=== PATIENT | female | born 1990 | race American Indian/Alaskan Native ===

== ENCOUNTER 2016-12-05 06:36 | Day surgery (SDC) | payer MEDICAID ==
[~2016-12-05 06:36] MED LIST: Lactated Ringers 1,000 ML IV SCH; Lidocaine 1% 4 ML ONE; Lidocaine 1%/Sod Bicarbonate in NS 8.4% 1 ML Syringe IV PRN; Midazolam 1 MG/ML 2 ML SDV ONE; Propofol 200 MG/20 ML SDV ONE; Sodium Chloride 0.9% 10 ML Syringe FLUSH PRN; fentaNYL 100 MCG/2 ML SDV ONE
--- NOTE | 2016-12-05 07:00 | PCM.PREANE ---
Preanesthetic Assessment - Anesthesia/Transfusion/Family Hx Anesthesia History: No Prior Anesthesia Family History of Anesthesia Reaction: No Transfusion History: No Prior Transfusion(s) - Review of Systems General: No Symptoms Pulmonary: No Symptoms Cardiovascular: No Symptoms Gastrointestinal: No symptoms Neurological: No Symptoms Other: Reports: None - Physical Assessment NPO Status Date: 12/04/16 NPO Status Time: 22:00 Pulse: 74 O2 Sat by Pulse Oximetry: 94 Respiratory Rate: 16 Blood Pressure: 152/104 Temperature: 97 F Height: 5 ft 6 in Weight: 110.087 kg ASA Class: 2 Mental Status: Alert & Oriented x3 Airway Class: Mallampati = 1 Dentition: Reports: Normal Dentition Thyro-Mental Finger Breadths: 3 Mouth Opening Finger Breadths: 3 ROM/Head Extension: Full Lungs: Clear to auscultation, Normal respiratory effort Cardiovascular: Regular Rate, Regular Rhythm - Allergies Allergies/Adverse Reactions: Allergies Allergy/AdvReac Type Severity Reaction Status Date / Time No Known Allergies Allergy Verified 12/04/16 14:45 - Blood Blood Available: No - Acknowledgements Anesthesia Type Planned: General Anesthesia Pt an Appropriate Candidate for the Planned Anesthesia: Yes Alternatives and Risks of Anesthesia Discussed w Pt/Guardian: Yes Pt/Guardian Understands and Agrees with Anesthesia Plan: Yes PreAnesthesia Questionnaire - Past Health History Medical/Surgical History: Denies Medical/Surgical History Cardiovascular History: Reports: None Respiratory History: Reports: None Gastrointestinal History: Reports: None : 2 Para: 2 Musculoskeletal History: Reports: None Neurological History: Reports: None Psychiatric History: Reports: None Endocrine/Metabolic History: Reports: Obesity/BMI 30+ Oncologic (Cancer) History: Reports: None - History Comment History Comment: HCG negative - SUBSTANCE USE Smoking Status *Q: Current Every Day Smoker (3 cigs every week for 2 years) Tobacco Use Within Last Twelve Months: Cigarettes Second Hand Smoke Exposure: Yes Days Per Week of Alcohol Use: 2 Number of Drinks Per Day: 10 Total Drinks Per Week: 20 Date of Last Drink: 12/03/16 Recreational Drug Use History: No - HOME MEDS Home Medications: Home Meds Hydrocodone/Acetaminophen [Hydrocodon-Acetaminophen 5-325] 1 - 2 tab PO Q6H PRN #20 tablet 12/05/16 [Rx] - CURRENT (IN HOUSE) MEDS Current Meds: Current Medications Lactated Ringer's (Ringers, Lactated) 1,000 mls @ 125 mls/hr IV ASDIRECTED TIMOTHY Lidocaine/Sodium Bicarbonate (Buffered Lidocaine 1% In Ns 8.4%) 0.25 ml IV ONETIME PRN PRN Reason: Prior to IV Start Sodium Chloride (Saline Flush) 10 ml FLUSH ASDIRECTED PRN PRN Reason: Keep Vein Open Discontinued Medications Fentanyl (Sublimaze) Confirm Administered Dose 100 mcg .ROUTE .STK-MED ONE Stop: 12/05/16 06:36 Lidocaine HCl (Xylocaine-Mpf 1%) Confirm Administered Dose 4 mls @ as directed .ROUTE .STK-MED ONE Stop: 12/05/16 06:36 Midazolam HCl (Versed 1 Mg/Ml) Confirm Administered Dose 2 mg .ROUTE .STK-MED ONE Stop: 12/05/16 06:36 Propofol (Diprivan 20 Ml) Confirm Administered Dose 200 mg .ROUTE .STK-MED ONE Stop: 12/05/16 06:36
[2016-12-05] MEDS ORDERED: Propofol 200 MG/20 ML SDV ONE (07:34)
[2016-12-05] MEDS ORDERED: fentaNYL 100 MCG/2 ML SDV ONE (07:43)
--- NOTE | 2016-12-05 07:45 | PCM.POSTAN ---
POST ANESTHESIA ASSESSMENT - MENTAL STATUS Mental Status: alert, oriented - VITAL SIGNS Pulse Rate: 74 SaO2: 96 Resp Rate: 15 Blood Pressure: 126/73 Temperature: 97.9 F - RESPIRATORY Respiratory Status: respiratory rate WNL, airway patent, O2 saturation stable - CARDIOVASCULAR CV Status: pulse rate WNL, blood pressure stable - GASTROINTESTINAL GI Status: no symptoms - POST OP HYDRATION Hydration Status: adequate & stable (5)
[2016-12-05] MEDS ORDERED: fentaNYL 100 MCG/2 ML SDV IVPUSH PRN (07:54)
[2016-12-05] MEDS: HYDROmorphone 0.5 MG/0.5 ML Syringe IVPUSH PRN ×2 (08:06→08:21)
[2016-12-05] MEDS ORDERED: Acetaminophen/HYDROcodone 325-5 MG Tab PO SCH (08:15)
[2016-12-05 08:24] VITALS: BP 144/91
--- NOTE | 2016-12-05 09:05 | CR ---
Right wrist: Multiple fluoroscopic spot views utilizing C-arm device were obtained of the right wrist. Fractures are identified within the distal metaphysis of the radius as well as fracture within the ulnar styloid process. Study shows closed reduction. Alignment has been returned to close to anatomic. Final film shows fiberglass cast in place. Fluoroscopy time given as 14.6 seconds. Impression: 1. Distal radial and ulnar fracture showing reduction and placement of fiberglass cast. Diagnostic code #2
--- NOTE | 2016-12-05 09:45 | PCM48HPAN ---
Post Anesthesia Note - EVALUATION WITHIN 48HRS OF ANESTHETIC Vital Signs in Normal Range: Yes Patient Participated in Evaluation: No (Patient discharged. visit with nurse) Respiratory Function Stable: Yes Airway Patent: Yes Cardiovascular Function Stable: Yes Hydration Status Stable: Yes Pain Control Satisfactory: Yes Nausea and Vomiting Control Satisfactory: Yes Mental Status Recovered: Yes
--- NOTE | 2016-12-18 12:45 | PCM.OPNOTE ---
- General Post-Op/Procedure Note Date of Surgery/Procedure: 12/05/16 Operative Procedure(s): closed reduction with short arm casting of right extraarticular distal radius fracture Pre Op Diagnosis: displaced extraarticular right distal radius fracture and ulnar styloid Post-Op Diagnosis: Same Anesthesia Technique: MAC Primary Surgeon: Juan Pascual Anesthesia Provider: Ree Doll Alligator Hunter: Paloma Romero EBL in mLs: 0 Complications: None Condition: Good
--- NOTE | 2016-12-18 14:08 | OR ---
DATE OF OPERATION: 12/05/2016 SURGEON: Juan Pascual MD OPERATION PERFORMED: Closed reduction, short-arm casting right extra-articular distal radius fracture. PREOPERATIVE DIAGNOSIS: Right displaced extra-articular right distal radius fracture and ulnar styloid fracture. POSTOPERATIVE DIAGNOSIS: Right displaced extra-articular right distal radius fracture and ulnar styloid fracture. ANESTHESIA: MAC. ANESTHESIA PROVIDER: Ree Doll CRNA. PAPERBOARD BOX MAKER: Paloma Romero PA-C. ESTIMATED BLOOD LOSS: 0 mL. COMPLICATIONS: None. CONDITION: Stable. DESCRIPTION OF PROCEDURE: The patient was identified in the preop holding area, where proper site was marked and identified by the surgeon. The patient was taken back to the operating theater, where after adequate anesthesia, a time-out was performed. At this time, under C-arm fluoroscopy, a closed reduction was done of the displaced extra-articular distal radius fracture. It was found to be adequately reduced on AP and lateral views with caodaism of height and volar tilt. At this time, under cast padding and Webril was placed and a short-arm cast was applied and molding was then had held under C-arm fluoroscopy to make sure it was continued to be reduced. It was found to have adequate reduction. At this time, the patient was sent to the PACU in stable condition. She tolerated the procedure well. FERDINAND /[id number]
== END 2016-12-05 09:06 | disposition home or self-care (01) ==
LOC: JD.SDS 06:36
PROVIDERS: ATTEND Orthopaedic Surgery
DX: S52.501A Unspecified fracture of the lower end of right radius, initial encounter for closed fracture (principal); S52.601A Unspecified fracture of lower end of right ulna, initial encounter for closed fracture; E66.9 Obesity, unspecified; Z68.30 Body mass index [BMI] 30.0-30.9, adult; F17.210 Nicotine dependence, cigarettes, uncomplicated; Z79.899 Other long term (current) drug therapy; X58.XXXA Exposure to other specified factors, initial encounter
CPT/HCPCS: 25600; 76000; 81025; J1170; J2250; J3010; J7120; 01820; J2704

== ENCOUNTER 2017-07-26 21:32 | Emergency (ER) | payer OTHER, MEDICAID ==
[2017-07-26 21:43] VITALS: BP 150/101
--- NOTE | 2017-07-26 22:18 | EDM.PDOC ---
ED HPI GENERAL MEDICAL PROBLEM - General Chief Complaint: General Stated Complaint: MEDICAL CLEARANCE FOR DETOX Time Seen by Provider: 07/26/17 22:00 Source of Information: Reports: Patient, Police History Limitations: Reports: No Limitations - History of Present Illness INITIAL COMMENTS - FREE TEXT/NARRATIVE: 27-year-old female presents with a [employer] department for medical clearance. The patient is not facing any charges. Her sister was picked up and because the patient's blood alcohol was 0.189 and due to the weather she will go to [facility] for detox tonight. She is here for medical clearance. Patient reports that she had a beer, 2 shots and a mixed drink tonight. last intake was about 2-3 hours ago. She denies any trauma. States she did not fall. She denies any pain, headaches, nausea or vomiting. She states that she normally drinks about once a week. She'll drinks about a 12 pack beer and a pint of michelle when she drinks. She has never had any withdrawal symptoms such as seizures, tremors or hallucinations. Patient is healthy with no known medical conditions. She is on medications. Patient denies any drug use. She denies any chance of . - Related Data Allergies Allergy/AdvReac Type Severity Reaction Status Date / Time No Known Allergies Allergy Verified 12/05/16 07:26 Home Meds: Home Meds Hydrocodone/Acetaminophen [Hydrocodon-Acetaminophen 5-325] 1 - 2 tab PO Q6H PRN #20 tablet 12/05/16 [Rx] Past Medical History - Past Health History Medical/Surgical History: Denies Medical/Surgical History Cardiovascular History: Reports: None Respiratory History: Reports: None Gastrointestinal History: Reports: None Musculoskeletal History: Reports: None Neurological History: Reports: None Psychiatric History: Reports: None Endocrine/Metabolic History: Reports: Obesity/BMI 30+ Oncologic (Cancer) History: Reports: None - History Comment History Comment: HCG negative Social & Family History - Tobacco Use Smoking Status *Q: Current Every Day Smoker Years of Tobacco use: 5 Packs/Tins Daily: 1 Second Hand Smoke Exposure: Yes - Caffeine Use Caffeine Use: Reports: Coffee, Soda - Alcohol Use Days Per Week of Alcohol Use: 2 Number of Drinks Per Day: 10 Total Drinks Per Week: 20 - Recreational Drug Use Recreational Drug Use: No Drug Use in Last 12 Months: No ED ROS GENERAL - Review of Systems Review Of Systems: See Below GI/Abdominal: Denies: Nausea, Vomiting Neurological: Denies: Headache, Seizure, Tremors Psychiatric: Denies: Hallucinations ED EXAM, GENERAL - Physical Exam Exam: See Below Exam Limited By: Intoxication General Appearance: Alert, WD/WN, No Apparent Distress, Obese, Other (patient smells of alcohol) Eye Exam: Bilateral Eye: Normal Inspection Ears: Normal External Exam Nose: Normal Inspection Throat/Mouth: Normal Inspection, Normal Lips, Normal Voice, No Airway Compromise Neck: Normal Inspection Respiratory/Chest: No Respiratory Distress, Lungs Clear, Normal Breath Sounds Cardiovascular: Normal Peripheral Pulses, Regular Rate, Rhythm, No Murmur GI/Abdominal: Normal Bowel Sounds, Soft, Non-Tender Neurological: Alert, Oriented, Normal Cognition, Normal Gait Psychiatric: Normal Affect, Normal Mood Skin Exam: Warm, Dry, Normal Color Course - Vital Signs Last Recorded V/S: Last Vital Signs Temp 36.6 C 07/26/17 21:40 Pulse 95 07/26/17 21:40 Resp 16 07/26/17 21:40 BP 150/101 H 07/26/17 21:40 Pulse Ox 95 07/26/17 21:40 - Re-Assessments/Exams Free Text/Narrative Re-Assessment/Exam: 07/26/17 22:20 I asked Cody to recheck her on her breathalyzer to just ensure that it is going down. She is 0.114 at this time. She was given something to eat here. I do not Feel she needs labs today. Will discharge her to [facility]. Departure - Departure Time of Disposition: 22:21 Disposition: Home, Self-Care 01 Condition: Good Clinical Impression: Alcohol intoxication - Discharge Information Instructions: Alcohol Intoxication, [id number] Referrals: PCP,None [Primary Care Provider] - Forms: ED Department Discharge Additional Instructions: You have been cleared to go With the [facility] for detox. We recommend that you do not drink alcohol. you will have a happier and healthier life if you do not drink alcohol or use tobacco products. Please return to the ER should your symptoms change or worsen.
== END 2017-07-26 22:30 | disposition home or self-care (01) ==
LOC: JD.ED 21:32
DX: F10.129 Alcohol abuse with intoxication, unspecified (principal); F17.210 Nicotine dependence, cigarettes, uncomplicated
CPT/HCPCS: 99282; 99283

== ENCOUNTER 2018-08-05 13:46 | Emergency (ER) | payer MEDICAID ==
[2018-08-05 14:02] VITALS: BP 149/102
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
[2018-08-05] MEDS: Acetaminophen/HYDROcodone 325-5 MG Tab PO ONE (15:59)
== END 2018-08-05 16:04 | disposition home or self-care (01) ==
LOC: JD.ED 13:46
DX: S01.301A Unspecified open wound of right ear, initial encounter (principal); W10.9XXA Fall (on) (from) unspecified stairs and steps, initial encounter
CPT/HCPCS: 99282; 99283; A9270-GY